=== PATIENT | male | born 1935 | race Caucasian/White ===

== ENCOUNTER 2019-04-01 08:56 | Inpatient (IN) ==
--- NOTE | 2019-04-01 09:28 | PROVIDER DOCUMENTATION ---
HPI-Abdominal Pain/GI Problem - General Chief Complaint: Abdominal Pain Stated Complaint: VOMITING Time Seen by Provider: 04/01/19 09:05 Source: patient, family Allergies/Adverse Reactions: Patient Allergies Allergy/AdvReac Type Severity Reaction Status Date / Time No Known Allergies Allergy Verified 04/01/19 09:25 Home Medications: Home Medication List Medication Instructions Recorded Confirmed Last Taken Type ATORVAstatin [Lipitor] 40 mg PO QHS 04/01/19 04/01/19 Unknown History Amlodipine [Norvasc] 10 mg PO DAILY 04/01/19 04/01/19 Unknown History Aspirin 325 mg PO DAILY 04/01/19 04/01/19 Unknown History Calcitriol 0.25 mcg PO DAILY 04/01/19 04/01/19 Unknown History Cyanocobalamin (Vitamin B-12) 1,000 mcg PO DAILY 04/01/19 04/01/19 Unknown History [B-12] Ferrous Sulfate [Iron] 325 mg PO DAILY 04/01/19 04/01/19 Unknown History Furosemide [Lasix] 40 mg PO DAILY 04/01/19 04/01/19 Unknown History - History of Present Illness-ABD Nature of Presenting Problems: Patient states that he started having nausia and vomiting Tuesdayafter eating a hotdog. He had a normal bowel movement yesterday. Denies diarrhea. Denies chest pain Abdominal Pain Onset Location: reports: generalized abdomen Pain Radiation: reports: no radiation Quality of Pain: reports: aching Severity in ED: reports: moderate Onset/Duration: reports: 2 days ago Timing: reports: still present Activities at Onset: reports: none Exposure to sick contacts?: No Modifying Factors: improves with: nothing Associated Symptoms: reports: denies symptoms Last BM: 24 hours ago Dark Stools Present?: reports: none noticed Rectal Bleeding: reports: none Rectal Pain: reports: none Bruising or Bleeding Gums?: No Similar Symptoms Previously?: No Recently seen or treated by another doctor?: No Review of Systems - Adult - REVIEW OF SYSTEMS - ADULT Constitutional: reports: no symptoms reported Eyes: reports: no symptoms reported Ears, Nose, Mouth & Throat: reports: no symptoms reported Cardiovascular: reports: no symptoms reported Respiratory: reports: no symptoms reported Gastrointestinal: reports: see HPI Genitourinary: reports: no symptoms reported Musculoskeletal: reports: no symptoms reported Integumentary: reports: no symptoms reported Neurological: reports: no symptoms reported Psychiatric: reports: no symptoms reported Endocrine: reports: no symptoms reported Hematologic/Lymphatic: reports: no symptoms reported Allergic/Immunologic: reports: no symptoms reported Past History - Adult - PAST MEDICAL HISTORY-ADULT Review of Records: reports: Old Records Reviewed, Nursing Assessment Review Genitourinary: reports: kidney disease Physical Exam-General - PHYSICAL EXAM-ADULT Initial Vital Signs Reviewed: Yes - CONSTITUTIONAL General Appearance: appears well, alert, no apparent distress - EYES Eyes: PERRL/EOMI, pink conjunctivae - HEAD, EARS, NOSE, MOUTH & THROAT HENMT: normocephalic/atraumatic, moist mucous membranes, normal ENT inspection, TMs normal, pharynx normal - NECK Neck: non-tender, full range of motion, supple - RESPIRATORY Respiratory: chest non-tender, lungs clear, normal breath sounds, no pleuratic chest pain, no respiratory distress - CARDIOVASCULAR Cardiovascular: normal peripheral pulses, regular rate, rhythm, no edema, no gallop, no JVD, no murmur - GASTROINTESTINAL (ABDOMEN) Abdominal Exam: normal bowel sounds, soft, no organomegaly, no pulsatile mass, tenderness (diffuse) - LYMPHATIC Lymphatic: no adenopathy - MUSCULOSKELETAL Back Exam: normal inspection, no CVA tenderness, no vertebral tenderness, CVA tenderness Extremity: normal range of motion, non-tender, normal gait, normal inspection, no pedal edema - SKIN Integumentary: other (skin cancer on left side of neck. Scabbed from radiation tx) - NEUROLOGIC Neurologic: grossly normal - PSYCHIATRIC Psych/Mental Status: normal mood/affect, normal thought content Progress - PLAN OF CARE/RESULTS Progress/Plan/Lab Results: Vital Signs - 8 hr 04/01/19 08:59 Temperature 97.5 F L Pulse Rate 87 Respiratory Rate 18 Blood Pressure 209/82 O2 Sat by Pulse Oximetry 97 Orders Category Date Time Status FLAT/UPRIGHT ABD/1 VIEW CHEST [RAD] Stat Exams 04/01/19 09:08 Ordered CBC WITH ELECTRONIC DIFF [HEME] Stat Lab 04/01/19 09:18 Ordered CK PROFILE [SP CHEM] Stat Lab 04/01/19 09:08 Ordered COMPREHENSIVE METABOLIC PANEL [CHEM] Stat Lab 04/01/19 09:08 Ordered TROPONIN T Stat Lab 04/01/19 09:08 Ordered EKG [EKG] Stat Ther 04/01/19 09:08 Ordered Result Diagrams: 04/01/19 09:15 04/01/19 09:15 - REASSESSMENT Reassessment #1 Time Reassessed: 10:37 Status: unchanged - EKG 1 Time of EKG reading by physician:: 09:43 EKG Read and Signed by:: Dave Sinha EKG Interpretation (*Must complete 3 of following elements*): Abnormal Rate: 65 Rhythm: sinus Kingsley: normal QRS: poor R wave progression CA Interval: normal ST Wave: normal - CONSULTS/PCP/HOSPITALIST Notification #1 *Consult/PCP/Hospitalist*: Ju Time Discussed: 10:38 (Admit to Dr Rodriguez) Consult Disposition: Admit Departure - Departure Date of Disposition Decision: 04/01/19 Time of Disposition Decision: 10:39 DIAGNOSIS: Small bowel obstruction, Chronic kidney disease Disposition: ADMITTED INPATIENT 09 Certified Medical Emergency: Emergent Condition: Stable Referrals and Follow-Ups: None,PCP [Primary Care Provider] - - Critical Care Note This patient required my direct & personal management of CC.: No Attestation - Physician/ SOREN Attestation Patient care was provided by Advanced Practice Provider:: No The physician spent face to face time with patient:: Yes Advanced Practice Provider documentation review:: Supervising physician onsite and consulted in the evaluation and care of this patient. The physician did have a face to face encounter with the patient.
[2019-04-01 09:33] LABS: BASO# 0.01 X1000 (0.0-0.2); BASO% 0.1 % (0.0-0.8); EOS# 0.03 X1000 (0.0-0.7); EOS% 0.3 % (0.0-10.0); HEMATOCRIT 37.7 % (42.0-52.0); HEMOGLOBIN 12.2 g/dL (14.0-18.0); LYMPH# 0.93 X1000 (1.2-3.4); LYMPH% 9.6 % (20.5-51.1); MCH 29.2 PG (27-31); MCHC 32.4 g/dL (33-37); MCV 90.2 FL (81-99); MONO# 0.83 X1000 (0.11-0.59); MONO% 8.6 % (1.7-9.3); MPV 11.9 FL (7.4-10.4); NEUT# 7.86 X1000 (1.4-6.5); NEUT% 81.4 % (42.2-75.2); PLT 142 X1000 (130-400); RBC 4.18 XMIL (4.7-6.1); RDW 15.1 % (11.5-14.5); WBC 9.66 X1000 (4.8-10.8)
--- NOTE | 2019-04-01 09:39 | Diag Imaging Result Doc PS360 ---
EXAM: FLAT/UPRIGHT ABD/1 VIEW CHEST 04/01/2019 HISTORY: nausia vomiting TECHNIQUE: Flat and upright abdomen with AP upright chest COMMENT: There are no previous studies available for comparison. There is some gas in the ascending colon and rectum but very little gas elsewhere in the colon. The stomach is not distended. There are markedly distended gas-filled small bowel loops in the mid abdomen and pelvis. The left hemidiaphragm is elevated and the heart size is slightly enlarged. Otherwise the lungs are clear. IMPRESSION: The possibility of small bowel obstruction cannot be excluded. Mild cardiomegaly. Electronically signed by Huy Aguila 04/01/2019 9:37 AM
[2019-04-01 10:02] LABS: ALB/GLOB RATIO 1.8; ALBUMIN 4.6 g/dL (3.5-5.0); CALCIUM 9.7 mg/dL (8.8-10.2); POTASSIUM 4.6 mmol/L (3.5-5.1); TOTAL BILIRUBIN 0.63 mg/dL (0.20-1.00); TOTAL PROTEIN 7.1 g/dL (6.3-8.3)
[2019-04-01] MEDS ORDERED: NS 1,000 ML IV ONE (10:31)
[2019-04-01] MEDS ORDERED: PHENERGAN IV ONE (10:32)
[2019-04-01] MEDS ORDERED: SODIUM CHLORIDE 0.9% INJ ONE (10:32)
--- NOTE | 2019-04-01 12:10 | HISTORY AND PHYSICAL ---
PRIMARY CARE PROVIDER: None. CHILDREN'S MINISTRY DIRECTOR: Dr. Ash. CHIEF COMPLAINT: Nausea and vomiting since Tuesday. HISTORY OF PRESENT ILLNESS: Mr. Deal is an 84-year-old gentleman who carries a past medical history of renal disease, refusing dialysis. He appears to be in end-stage renal disease. His GFR is 14. He takes p.o. Lasix. Hypertension, hyperlipidemia, anemia, skin cancers - several removed (two on his neck on the left side that he is in the process of having removed). He reports on Tuesday, after eating a hot dog, he has had nausea and vomiting since then without any relief. He reports a normal BM yesterday. He has not passed any gas. He also reported some left groin pain. There is a hernia present. He said it popped up after one of the episodes of vomiting. He did get some relief after some IV Phenergan that was given to him in the ED. He was noted to be hypertensive. His abdominal x-ray shows the possibility of a small bowel obstruction. He had hypoactive bowel sounds. We will admit him to the surgical floor with a general surgery consult, hold him NPO and gently hydrate him, and continue antiemetics. PAST MEDICAL HISTORY: 1. Chronic kidney disease, appears to be end-stage now. GFR is 14. Refusing hemodialysis. Followed by Dr. Ash. 2. Hypertension. 3. Hyperlipidemia. 4. Anemia. 5. Several skin cancer removals on the face, neck, and back. SURGICAL HISTORY: Skin cancer removals. Denies any other type of surgeries. SOCIAL HISTORY: He is . at bedside, with supportive family members. FAMILY HISTORY: Reviewed and noncontributory. ALLERGIES: No known drug allergies. HOME MEDICATIONS: 1. Lipitor 40 mg p.o. at bedtime. 2. Aspirin 325 mg p.o. daily. 3. Vitamin B12 1000 mcg p.o. daily. 4. Calcitriol 0.25 mcg p.o. daily. 5. Iron 325 mg p.o. daily. 6. Lasix 40 mg p.o. daily. 7. Norvasc 10 mg p.o. daily. PHYSICAL EXAMINATION: VITAL SIGNS: Temperature is 97.5 degrees, heart rate 87, respirations 18, blood pressure was 209/82, O2 is 97% on room air. GENERAL: Mr. Deal is an ill-appearing, 84-year-old, male who is lying on the stretcher, in no acute distress. HEENT: Atraumatic, normocephalic. PERRL. NECK: Supple. Trachea midline. CARDIOVASCULAR: S1, S2 appreciated. No murmurs, gallops, rubs noted. RESPIRATORY: Lung sounds clear bilaterally. GI: Tender. Does appear swollen. Semisoft to the touch. Hypoactive bowel sounds. There is a left inguinal hernia present. SKIN: The patient does have several areas on his face where he has had skin cancer removal. He has 2 areas on the left side of his neck that are currently being treated. He has a large scar to his upper back from skin cancer removal that is healing nicely. REVIEW OF SYSTEMS: Twelve-point review of systems, the patient has had some subjective fevers, chills, nausea, vomiting. No chest pain. No palpitations. No syncopal episodes. He has not been able to pass gas. Left inguinal pain secondary to hernia. DIAGNOSTIC DATA: Abdominal x-ray showed the possibility of small-bowel obstruction could not be excluded. LABORATORY DATA: White count 9, hemoglobin and hematocrit 12 and 37, platelet count is 142,000. Sodium 143, potassium 4.6, BUN 48, creatinine 4.8, GFR is 14, blood glucose is 129. Troponin was 0.074. ASSESSMENT AND PLAN: 1. Probable small bowel obstruction. We will continue with nothing per oral status, gently hydrate him, provide pain medications and antiemetics. Consult general surgery. Await their recommendations. The patient did get relief with intravenous Phenergan. We will hold off for nasogastric tube for now. 2. Left inguinal hernia, new, secondary to straining with vomiting. We will make Dr. Camacho aware. Continue with pain regimen. 3. CKD5. Patient refuses hemodialysis. He is followed by Dr. Ash. Only takes Lasix at home. We will make Dr. Ash aware that he has been admitted. 5. Hypertension. We will continue home medications aside from lasix. 6. Hyperlipidemia. 7. Anemia. likely anemia of chronic disease. 8. Skin cancer removals. Aware. 9. CODE STATUS DNR1 10. Further recommendation to follow physician evaluation, laboratory and diagnostic data. Dictated by ALFRED Cooper for Mikhail Rodriguez MD cc: Jeevan Ash MD Agree with the above. the following is my own face to face assessment. abdomen soft, minimal diffuse tenderness, non-distended. SBO on imaging but exam is fairly unimpressive. will hopefully improve rapidly with bowel rest. MTDSteve
--- NOTE | 2019-04-01 13:05 | EKG Report ---
Test Performed on : 04/01/2019 09:33:44 AM Test Reason : NV Blood Pressure : / mmHG Vent. Rate : 065 BPM Atrial Rate : 065 BPM P-R Int : 168 ms QRS Dur : 092 ms QT Int : 424 ms P-R-T Axes : 059 013 088 degrees QTc Int : 440 ms Normal sinus rhythm. Cannot rule out Anterior infarct (cited on or before 01-APR-2019) Abnormal ECG When compared with ECG of 01-APR-2019 09:33, (Unconfirmed) No significant change was found Unconfirmed Result
[2019-04-01] MEDS ORDERED: ZOFRAN IV PRN (14:13)
[2019-04-01] MEDS: NS 1,000 ML IV SCH (14:24)
[2019-04-01] MEDS: MORPHINE IV PRN ×2 (14:27→23:15)
[2019-04-01] MEDS: NORVASC PO SCH (17:23)
--- NOTE | 2019-04-01 19:43 | Diag Imaging Result Doc PS360 ---
EXAM: CT ABDOMEN/PELVIS W/O CONTRAST 04/01/2019 HISTORY: sbo, ?left inguinal hernia TECHNIQUE: This exam was performed using automated exposure control, adjustment of mA or kV according to patient size, and/or use of iterative reconstruction technique. COMMENT: There are atelectatic changes present in both lung bases. There are no previous studies available for comparison. There is an infrarenal abdominal aortic aneurysm measuring almost 5 cm in AP dimension. There is dense calcification of the aorta and its branches including the superior mesenteric celiac and both renal arteries. There are densely calcified small stones in the gallbladder. There are granulomata in the liver and spleen. There is ascites. The appendix is not enlarged. There is some gas and stool in the colon. The colon is not distended. There is marked distention of much of the small bowel. The distal small bowel is normal in caliber. The transition point appears to be related to a left inguinal hernia. IMPRESSION: 1. Small bowel obstruction due to incarcerated left inguinal hernia. 2. Abdominal aortic aneurysm. Atherosclerosis. 3. Ascites. Electronically signed by Huy Aguila 04/01/2019 7:41 PM
[2019-04-01] MEDS ORDERED: KEFZOL 1 GM/D5W 1 GM/50 ML IVPB IV ONE (19:51)
[2019-04-01] MEDS ORDERED: XYLOCAINE-MPF 2% ONE (20:08)
[2019-04-01] MEDS ORDERED: DIPRIVAN 1% ONE (20:08)
[2019-04-01] MEDS ORDERED: QUELICIN (DOSE) ONE (20:10)
[2019-04-01] MEDS ORDERED: SUFENTA ONE (20:12)
[2019-04-01] MEDS ORDERED: MARCAINE 0.25% PF/EPI 1:200,000 ONE (20:33)
[2019-04-01] MEDS ORDERED: ZOFRAN ONE (21:06)
[2019-04-01] MEDS ORDERED: DECADRON ONE (21:06)
--- NOTE | 2019-04-01 22:00 | OPERATIVE NOTE ---
PROCEDURE DATE: 04/01/2019 PREOPERATIVE DIAGNOSIS: 1. Incarcerated left inguinal hernia and small bowel obstruction. 2. End-stage renal disease. POSTOP DIAGNOSIS: 1. Incarcerated left inguinal hernia and small bowel obstruction. 2. End-stage renal disease. PROCEDURE: Open repair of incarcerated left inguinal hernia. SURGEON: Daniele Camacho MD. ANESTHESIA: General estimated. ESTIMATED BLOOD LOSS: 5 mL. COMPLICATIONS: None apparent. SPECIMENS: Omentum. FINDINGS: He had a femoral hernia with incarcerated omentum that was ischemic. The small bowel had reduced back into the abdomen, but the omentum remained incarcerated. There was ascites noted, but nothing purulent. TECHNIQUE: The patient was brought to the operating room and placed supine on the table. General anesthesia was induced. He was prepped and draped in usual sterile fashion. 0.25% Marcaine with epinephrine was used to anesthetize our incision which was made in the left groin. Dissection was carried down through the subcutaneous tissues with cautery. The external oblique aponeurosis was incised sharply with the knife and Metzenbaum scissors down through the external ring. The testicular cord was then dissected and a [place] drain was placed around it. The hernia sac was easily identified in the femoral space. I incised the inguinal ligament partially to allow the hernia to be reduced. There was a portion of omentum that appeared ischemic. I amputated this with cautery. The hernia sac was then opened. Some ascites was suctioned out but nothing purulent was seen. There was no succus entericus. The small bowel was reduced back into the abdomen. There was no evidence of ischemic bowel. The hernia sac was then closed with a running 2-0 Vicryl. I then repaired the hernia by approximating the transversus arch and internal oblique aponeurosis down to the pectineal ligament with a running 2-0 Prolene. I then closed the external oblique aponeurosis with a running 2-0 Vicryl. The skin was closed with a running 4-0 subcuticular Monocryl and Steri-Strips. There were no apparent complications. He was awakened in stable condition and transferred to the recovery room. cc: Daniele Camacho MD
[2019-04-01] MEDS: LIPITOR PO SCH (23:31)
[2019-04-02] MEDS: NORCO-10 PO PRN ×4 (02:43→22:07)
[2019-04-02] MEDS: MORPHINE IV PRN (05:38)
[2019-04-02 06:50] LABS: ALB/GLOB RATIO 1.7; ALBUMIN 3.8 g/dL (3.5-5.0); CALCIUM 8.3 mg/dL (8.8-10.2); MAGNESIUM 1.9 mg/dL (1.5-2.7); POTASSIUM 4.5 mmol/L (3.5-5.1); TOTAL BILIRUBIN 0.26 mg/dL (0.20-1.00)
[2019-04-02 07:41] LABS: HEMATOCRIT 31.2 % (42.0-52.0); HEMOGLOBIN 9.6 g/dL (14.0-18.0); IMM GRAN# 0.02 X1000 (0.0-0.04); IMM GRAN% 0.3 % (0.0-0.5); LYMPH# 0.37 X1000 (1.2-3.4); LYMPH% 6.1 % (20.5-51.1); MCH 28.4 PG (27-31); MCHC 30.8 g/dL (33-37); MCV 92.3 FL (81-99); MONO# 0.74 X1000 (0.11-0.59); MONO% 12.3 % (1.7-9.3); NEUT# 4.91 X1000 (1.4-6.5); NEUT% 81.3 % (42.2-75.2); PLT 112 X1000 (130-400); RBC 3.38 XMIL (4.7-6.1); RDW 15.2 % (11.5-14.5); WBC 6.04 X1000 (4.8-10.8)
[2019-04-02] MEDS: NORVASC PO SCH (08:33)
[2019-04-02] MEDS: PERIDEX MT SCH ×2 (08:33→21:17)
--- NOTE | 2019-04-02 08:33 | Diag Imaging Result Doc PS360 ---
EXAM: KUB ABDOMEN INDICATION: SBO TECHNIQUE: 2 views COMPARISON: 04/01/2019 FINDINGS: Gaseous distention of small bowel is again noted consistent with obstruction. The degree of distention is approximately stable but more bowel loops appear to be involved. There is no evidence of large volume free abdominal gas. The abdomen is stable, otherwise. IMPRESSION: Gaseous distention of small bowel as described with more bowel loops involved as compared to the previous study. Electronically signed by Tho Haddad 04/02/2019 8:30 AM
--- NOTE | 2019-04-02 15:39 | PROGRESS NOTE ---
DATE: 04/02/2019 INTERVAL HISTORY: Patient is status post surgery last night for incarcerated hernia. He reports some tenderness around the incision, but otherwise no new complaint. Still no bowel movement, but reports no further nausea. No vomiting. No acute events overnight. REVIEW OF SYSTEMS: Twelve point Review of Systems negative except as per interval history. LABORATORY: WBC 6.0, hemoglobin 9.6, hematocrit 31.2, and platelets 112,000. Sodium 140, potassium 4.5, BUN 53, and creatinine 4, glucose 134. Troponin negative x3. VITALS: T-max 98.3 degrees, pulse 61, respirations 18, and blood pressure 156/52. 02 sat 96 on room air. PHYSICAL EXAMINATION: General: No acute distress. Vitals: As above. HEENT: Normocephalic atraumatic. Moist mucous membranes. Neck: No cervical adenopathy. Cardiovascular: Regular rate and rhythm. No murmurs noted. Pulmonary: Clear to auscultation bilaterally. No wheezing, rales or rhonchi. Abdomen: Mildly distended. Minimal diffuse tenderness without rebound or guarding. Bowel sounds significantly decreased but present. Left anterior groin bandaged. Extremities: Peripheral pulses are intact. No clubbing or cyanosis. Neurologic: Cranial nerves grossly intact. No focal deficits identified. Psychiatric: Normal mood and affect. Awake, alert, and cooperative. Skin: Multiple healing areas. Previous skin cancer removal on the face and neck in various stages. ASSESSMENT AND PLAN: 1. Small bowel obstruction, left incarcerated hernia. The patient is status post surgical repair of incarcerated hernia last night. Ischemic omentum was found, but no ischemic/necrotic bowel. Still, no bowel movement and x-ray still with small bowel obstruction. However, patient is symptomatically improved suspected, it will just take some time at this point. Surgery following. We will continue supportive care. 2. CKD 5. Creatinine stable. The patient followed by Dr. Ash. The patient has refused dialysis. 3. Hypertension. Continue home Norvasc. Monitor postop. If he remains stable, we will likely restart Lasix tomorrow. 4. Hyperlipidemia. Continue home statin. 5. Anemia, likely anemia of chronic disease related to kidney function. He did have a bit of a drop today which may have been related to the procedure. No signs or symptoms of ongoing bleeding. Continue to monitor blood counts. No need for transfusion at this time. 6. Code Status: DNR 1.
--- NOTE | 2019-04-02 18:36 | GENERAL SURGERY PROGRESS NOTE ---
DATE: 04/02/2019 SUBJECTIVE: The patient reports feeling better, less abdominal pain, no nausea or vomiting. He is tolerating a liquid diet. He has passed gas. He is ambulating and voiding. OBJECTIVE: Vital Signs: He is afebrile. Vital signs are stable. General: He is awake, alert, and oriented x4. No acute distress. GI: Soft, less distention. Minimal tenderness. Positive bowel sounds. Left groin incision is clean, dry, and intact. LABORATORY: White blood cell count 6, hemoglobin 9.6, hematocrit 31. Electrolytes reviewed and unremarkable. BUN 53, creatinine 4.0, relatively stable. IMAGING: Abdominal x-ray today shows continued gaseous distention of small bowel. ASSESSMENT AND PLAN: An 84-year-old male postoperative day 1 of repair of incarcerated left inguinal hernia with associated small bowel obstruction. He feels better. He is having some bowel function. We will advance his diet today slowly. If he tolerates his diet and continues to have bowel function, he can be discharged within 24 hours and follow up with me in 2 weeks. He also needs to follow up with Dr. Lan for evaluation of an abdominal aortic aneurysm. cc: Daniele Camacho MD
[2019-04-02] MEDS: LIPITOR PO SCH (21:17)
[2019-04-03] MEDS: NS 1,000 ML IV SCH (06:09)
[2019-04-03] MEDS: NORVASC PO SCH (09:18)
[2019-04-03] MEDS: PERIDEX MT SCH (09:18)
[2019-04-03] MEDS ORDERED: LABETALOL IV PRN (15:49)
[2019-04-03] MEDS ORDERED: LASIX PO SCH (16:00)
[2019-04-03] MEDS ORDERED: TRANDATE PO SCH (17:00)
--- NOTE | 2019-04-03 17:57 | PROGRESS NOTE ---
DATE: 04/03/2019 INTERVAL HISTORY: No other acute overnight events. He is feeling fine. Surgical team has conveyed to us that he can be discharged. He is denying any nausea or vomiting. He has been passing gas consistently. PHYSICAL EXAMINATION: Vital signs: Temperature 98.5 degrees, pulse 72, respiratory rate 14, blood pressure 190/48, saturating 94% on room air. General: Does not appear in acute distress. heent: Oral cavity is moist. pulmonary: Bilateral inspiratory crackles which is minimal. Cardiovascular: S1, S2 normal. No murmur, rub, or gallop. Extremities: No lower extremity edema. LABORATORIES: No new labs today. ASSESSMENT AND PLAN: 1. Incarcerated left inguinal hernia status post surgery and removal of necrotic omental patch. 2. Chronic kidney disease stage V. 3. Essential hypertension. 4. Hyperlipidemia. 5. Likely anemia of chronic kidney disease. PLAN: Start the patient on labetalol. Give IV intravenous labetalol as well. If cleared by Surgery, plan is to discharge him. Plan of care discussed with him and his family at bedside. If his blood pressure is within acceptable range, my plan is to discharge him later today. cc: Mik Leon MD
[2019-04-03 18:09] VITALS: BP 177/51
--- NOTE | 2019-04-03 18:58 | GENERAL SURGERY PROGRESS NOTE ---
DATE: 04/03/2019 SUBJECTIVE: The patient is feeling much better. No significant abdominal pain. No nausea or vomiting. He is having bowel movements. He is eating. OBJECTIVE: vital signs: He is afebrile. Vital signs are stable. General: He is awake, alert, oriented x3. No acute distress. Gastrointestinal: Soft, nondistended, nontender. Left groin hernia repair appears intact. Minimal swelling. No drainage. ASSESSMENT AND PLAN: An 84-year-old male status post repair of incarcerated left inguinal hernia for bowel obstruction. This has all improved and he is safe for discharge from my standpoint. cc: Daniele Camacho MD
--- NOTE | 2019-04-04 06:24 | DISCHARGE SUMMARY ---
ADMISSION DATE: 04/01/2019 DISCHARGE DATE: 04/03/2019 DISCHARGE DISPOSITION: Home with family. DISCHARGE CONDITION: Hemodynamically stable though he is hypertensive. He is getting intravenous labetalol and will be discharged on oral labetalol. He is denying any chest pain, shortness of breath, or palpitations. DISCHARGE DIAGNOSES: 1. Small bowel obstruction due to left incarcerated inguinal hernia. 2. Chronic kidney disease stage 5. 3. Essential hypertension, uncontrolled. 4. Hyperlipidemia. 5. Anemia of chronic disease. VITALS: At the time of discharge, temperature is 99 degrees, pulses 77, respiratory rate 16, blood pressure 200/57, and saturation 94% on room air. He is getting intravenous labetalol with pending repeat blood pressure. Repeat systolic BP is 178 mmHg PHYSICAL EXAMINATION: Oral cavity is moist at the time of discharge. Air entry bilaterally equal. No wheeze rhonchi or crackles. S1 normal. No murmur or gallop. Abdomen is Soft and nontender. He does have left groin incision which is healing well. He is alert and oriented x3. Family is at bedside. LABORATORY: During hospital admission, hemoglobin of 9.6, platelet of 112,000, BUN of 53, and creatinine of 4. MICROBIOLOGY: Significant micro during hospital admission none. IMAGING: Significant imaging during hospital admission, abdomen and pelvis CT on 04/01 had small bowel obstruction due to incarcerated left inguinal hernia. Abdominal aortic aneurysm of about 5 cm and ascites. PROCEDURES DURING HOSPITAL ADMISSION: During hospital admission. On April 01, he underwent open repair of incarcerated left inguinal hernia. HOSPITAL COURSE SUMMARY: Mr. Deal is an 84-year-old man with past medical history of chronic kidney disease stage 5, who had refused dialysis in the past, hypertension, hyperlipidemia, and skin cancers came in with chief complaints of nausea, vomiting, and inability to pass gas with left groin pain. In the emergency room, he was found to have small bowel obstruction on CAT scan with likely incarcerated left inguinal hernia. The surgical team was consulted. The patient underwent open hernia repair, which he tolerated well. Postoperatively, he was tolerating diet well and was passing gas consistently with bowel movements to treat it. It was decided to discharge him. He was also found to be hypertensive, and his home amlodipine as well as his were resumed. He was also given intravenous labetalol and was discharged on oral labetalol. DISCHARGE MEDICATIONS: 1. Atorvastatin 40 mg at nighttime. 2. Aspirin 325 mg daily. 3. Vitamin B12 1000 mcg daily. 4. Calcitriol 0.25 mcg daily. 5. Ferrous Sulfate 325 mg daily. 6. Furosemide 40 mg daily. 7. Amlodipine 10 mg daily. 8. Hydrocodone butalbital 10 mg every 4 hours as needed for pain. 9. Labetalol 100 mg b.i.d. 60 tablets have been prescribed. TIME SPENT: More than 30 minutes have been spent in discharge, and preparing discharge summary for this patient. cc: Mik Leon MD MTDSteve
[2019-04-04] MEDS ORDERED: VITAMIN B-12 PO SCH (09:00)
[2019-04-04] MEDS ORDERED: ROCALTROL PO SCH (09:00)
[2019-04-04] MEDS ORDERED: FERROUS SULFATE PO SCH (09:00)
== END 2019-04-03 18:13 | disposition home or self-care (01) | DRG 351 ==
LOC: ED 08:56 → SUATTDRO 14:06 → EDIPHOLD 14:06 → 4N 15:07
PROVIDERS: ATTEND Internal Medicine
CPT/HCPCS: 74000; 74018; 74022; 74176; 80053; 82550; 83735; 84484; 85025; 88304; 93005; 96361; 96374; 96375; 99285; A9270; J0330; J0690; J1100; J2270; J2405; J2550; J7030